=== PATIENT | male | born 1935 | race Two or more races ===

== ENCOUNTER 2022-04-26 17:58 | Emergency (ER) | payer OTHER ==
[~2022-04-26] VITALS: Ht 157.5 cm; Wt 65.8 kg
[2022-04-26] MEDS ORDERED: ARICEPT5 MG (18:09)
== END 2022-04-26 18:52 | disposition home or self-care (01) ==
LOC: ER 17:58
DX: T23.202A Burn of second degree of left hand, unspecified site, initial encounter (principal); X10.0XXA Contact with hot drinks, initial encounter; Y93.89 Activity, other specified; Y92.018 Other place in single-family (private) house as the place of occurrence of the external cause; Y99.9 Unspecified external cause status